=== PATIENT | female | born 1970 | race Caucasian/White ===

== ENCOUNTER 2021-04-26 08:51 | Day surgery (SDC) | payer BC ==
[~2021-04-26 08:51] MED LIST: Lactated Ringers 1,000 ML IV SCH; Propofol 200 MG/20 ML SDV ONE; Sodium Chloride 0.9% 10 ML Syringe FLUSH PRN
[2021-04-26] MEDS ORDERED: Propofol 200 MG/20 ML SDV ONE (09:53)
--- NOTE | 2021-04-26 09:56 | PCM.PN ---
- General Info Date of Service: 04/26/21 - Review of Systems Systems Review Comment:: 50-year-old female referred by Zenaida Ansari for initial screening colonoscopy. She is medically stable to proceed today. Her recent history and physical is reviewed and no significant changes are noted. I have discussed the proposed colonoscopy with the patient. Risks such as but not limited to bleeding and GI injury reviewed. She agrees to proceed. - Patient Data Vitals - Most Recent: Last Vital Signs Temp 98.8 F 04/26/21 09:39 Pulse 55 L 04/26/21 09:39 Resp 18 04/26/21 09:39 BP 120/75 04/26/21 09:39 Pulse Ox 99 04/26/21 09:39 Weight - Most Recent: 65.771 kg Med Orders - Current: Current Medications Lactated Ringer's (Ringers, Lactated) 1,000 mls @ 125 mls/hr IV ASDIRECTED GRIS Last Admin: 04/26/21 09:20 Dose: 125 mls/hr Documented by: Sodium Chloride (Sodium Chloride 0.9% 10 Ml Syringe) 10 ml FLUSH ASDIRECTED PRN PRN Reason: Keep Vein Open Discontinued Medications Propofol (Propofol 200 Mg/20 Ml Sdv) Confirm Administered Dose 400 mg .ROUTE .STK-MED ONE Stop: 04/26/21 07:58 Sepsis Event Note - Focused Exam Vital Signs: Vital Signs Temp Pulse Resp BP Pulse Ox 04/26/21 09:39 98.8 F 55 L 18 120/75 99 - Problem List Review Problem List Initiated/Reviewed/Updated: Yes - Assessment Assessment:: Colon cancer screening - Plan Plan:: Colonoscopy
--- NOTE | 2021-04-26 10:26 | PCM.OPNOTE ---
- General Post-Op/Procedure Note Date of Surgery/Procedure: 04/26/21 Operative Procedure(s): Colonoscopy Findings: Normal-appearing colon and terminal ileum Pre Op Diagnosis: Colon cancer screening Post-Op Diagnosis: Normal colon Anesthesia Technique: MAC Primary Surgeon: Jose Cardenas Pathology: none EBL in mLs: 0 Complications: None Condition: Good
--- NOTE | 2021-04-26 11:21 | OR ---
Date of Procedure: 04/26/2021 PREOPERATIVE DIAGNOSIS: Colon cancer screening. POSTOPERATIVE DIAGNOSIS: Normal colon. OPERATION PERFORMED: Colonoscopy. INDICATIONS FOR SURGERY: This 50-year-old female is referred for her initial screening colonoscopy. She denies any known family history of colon cancer. FINDINGS: The patient's colon and terminal ileum appear normal. DESCRIPTION OF PROCEDURE: The patient was taken to the operating room. She was given intravenous sedation, and with her in the left lateral decubitus position, digital rectal exam was performed showing no rectal masses. The Olympus colonoscope was inserted into the rectum. Retroflexed examination of the rectal canal was performed. The scope was then carefully advanced under direct visualization through the entire length of the colon until the cecum was reached. Cecal acquisition was confirmed by noting the normal internal cecal anatomy including the appendiceal orifice and the ileocecal valve. The light was also noted to transilluminate the abdominal wall in the right lower quadrant. The ileocecal valve was cannulated and the terminal ileum examined and appeared normal. The scope was then slowly withdrawn sequentially re- examining the colonic segments until the entire colon and rectum had been fully examined. The scope was removed, and the patient was taken from the operating room in satisfactory condition. ESTIMATED BLOOD LOSS: 0. COMPLICATIONS: None. PROGNOSIS: Good. SHI Cardenas MD /[id number]
== END 2021-04-26 11:25 | disposition home or self-care (01) ==
LOC: LL.SDS 08:51
PROVIDERS: ATTEND Surgery
DX: Z12.11 Encounter for screening for malignant neoplasm of colon (principal); F41.9 Anxiety disorder, unspecified; Z79.899 Other long term (current) drug therapy
CPT/HCPCS: 45378; J2704; J7120; 00812